=== PATIENT | female | born 1975 | race Caucasian/White ===

== ENCOUNTER → 2020-10-06 | Emergency (ER) | payer OTHER ==
[~2020-10-06] VITALS: Ht 170.2 cm; Wt 72.6 kg
[~2020-10-06] MED LIST: BENAZEPRIL HCL40 MG PO; HYDRALAZINE HCL25 MG PO
== END | disposition left against medical advice (07) ==
LOC: ER 19:33
DX: S90.112A Contusion of left great toe without damage to nail, initial encounter (principal); W23.0XXA Caught, crushed, jammed, or pinched between moving objects, initial encounter; Y93.89 Activity, other specified; Y92.89 Other specified places as the place of occurrence of the external cause; Y99.8 Other external cause status